=== PATIENT | male | born 1940 | race African-American/Black ===

== ENCOUNTER 2016-06-08 14:09 | Emergency (ER) | payer MEDICARE ==
[~2016-06-08] VITALS: Ht 162.6 cm; Wt 61.2 kg
[~2016-06-08 14:09] MED LIST: APRESOLINE50 MG ORAL; ASPIRIN EC81 MG ORAL; CARAFATE1 G1 ORAL; CATAPRES0.1 MG ORAL; CHROMIUM PICO400 MCG PO; FOLIC ACID-VIT1 EACH PO; FOLIC ACID1 MG ORAL; HUMALOG100 UNIT/1 SUBQ; JANUVIA25 MG ORAL; LEVOTHYROXINE75 MCG ORAL; LISINOPRIL20 MG ORAL; LOPRESSOR25 M1 ORAL; METOPROLOL TAR100 M1 ORAL; METOPROLOL TART50 MG ORAL; NOVOLOG100 UNITS1 SUBQ; PATADAY2.5 ML OP; PLAVIX75 MG ORAL; POTASSIUM30 MEQ/22. GT; PROTONIX40 MG ORAL; RENVELA800 MG ORAL; TRAVATAN Z5 ML OP; VITAMIN D1000 UNI1 ORAL; ZESTRIL10 MG ORAL
[2016-06-08] MEDS ORDERED: UNOBMED (14:29)
[2016-06-08 15:03] VITALS: BP 164/81
[2016-06-08 15:12] VITALS: BP 160/72
--- NOTE | 2016-06-08 17:00 | Emergency Room Report ---
History of Present Illness General Chief Complaint: Hypertension Source: Patient Present Illness HPI 75-year-old male presents ED for violation. Patient states he was at dialysis today and he was noted to be hypertensive. BP was 240/106. Patient did complete his dialysis. Clonidine prior to arrival. patient states she feels okay. Denies any headaches, blurry vision, nausea or vomiting. Denies chest pain or shortness of breath. No other aggravating or relieving factors. Denies any other associated symptoms. PMD is Dr. Norris Allergies: Coded Allergies: NO KNOWN DRUG ALLERGIES (Unverified Allergy, Unknown, 06/29/14) Patient History Past Medical History: HTN, renal disease, dialysis Past Surgical History: none Pertinent Family History: none Social History: Denies: alcohol use, drug use, smoking Immunizations: UTD Reviewed Nursing Documentation: PMH: Agreed, PSxH: Agreed Nursing Documentation-PMH Past Medical History: No History, Except For Hx Cardiac Problems: Yes - eye operation Hx Hypertension: Yes Hx Asthma: No Hx COPD: No Hx Diabetes: Yes Hx Cancer: No Hx Gastrointestinal Problems: No Hx Dialysis: Yes - T Th Sat Hx Neurological Problems: No Hx Cerebrovascular Accident: No Hx Seizures: No Review of Systems All Other Systems: negative except mentioned in HPI Physical Exam Vital Signs Date Time Temp Pulse Resp B/P Pulse Ox O2 Delivery O2 Flow Rate FiO2 06/08/16 14:21 98.1 51 18 147/71 99 Room Air Sp02 EP Interpretation: reviewed, normal General Appearance: no apparent distress, alert, GCS 15, non-toxic Head: normocephalic, atraumatic Eyes: bilateral eye PERRL, bilateral eye normal inspection ENT: hearing grossly normal, normal pharynx, no angioedema, normal voice Neck: full range of motion, supple/symm/no masses Respiratory: chest non-tender, lungs clear, normal breath sounds, speaking full sentences Cardiovascular #1: regular rate, rhythm, no edema Cardiovascular #2: 2+ carotid (R), 2+ carotid (L), 2+ radial (R), 2+ radial (L) , 2+ dorsalis pedis (R), 2+ dorsalis pedis (L) Gastrointestinal: normal bowel sounds, non tender, soft, non-distended, no guarding, no rebound Rectal: deferred Genitourinary: normal inspection, no CVA tenderness Musculoskeletal: back normal, gait/station normal, normal range of motion, non- tender Neurologic: alert, oriented x3, responsive, motor strength/tone normal, sensory intact, speech normal Psychiatric: judgement/insight normal, memory normal, mood/affect normal, no suicidal/homicidal ideation Reflexes: 3+ bicep (R), 3+ bicep (L), 3+ tricep (R), 3+ tricep (L), 3+ knee (R) , 3+ knee (L) Skin: normal color, no rash, warm/dry, well hydrated Lymphatic: no adenopathy Medical Decision Making Diagnostic Impression: Primary Impression: Hypertension Qualified Codes: I15.9 - Secondary hypertension, unspecified ER Course Hospital Course 75-year-old male presents ED complaining of elevated BP, completed dialysis today. Asymptomatic Differential diagnoses include: hypertensive urgency, hypertensive emergency, arrythmia, NV/ACS Clinical course Patient placed on stretcher. After initial history and physical I repeated BP and it was 147/71. patient remains asymptomatic. I see no reason to draw labs or treat emergently. I discussed case with PMD Dr. Norris he agrees no further intervention required at this time. Patient can be safely discharged to home with followup I. I feel this is a highly complex case requiring extensive working including EKG/Rhythm strip, Xray/CT/US, Blood/urine lab work, repeat exams while in ED, and administration of strong opiates/narcotics for pain control, admission to hospital or close patient follow up. Diagnosis - hypertension Stable and discharged to home. Instructed to followup with PMD. Return to ED if symptoms recur or worsen Last Vital Signs Date Time Temp Pulse Resp B/P Pulse Ox O2 Delivery O2 Flow Rate FiO2 06/08/16 15:12 98.0 60 18 160/72 99 Room Air Status: improved Disposition: HOME, SELF-CARE Condition: Stable Referrals: LUCINDA WELLINGTON (PCP) Patient Instructions: Hypertension, [id number] JABIER SUTTON M.D. Jun 08, 2016 17:00
== END 2016-06-08 15:12 | disposition home or self-care (01) ==
LOC: EMR 15:00
DX: I12.0 Hypertensive chronic kidney disease with stage 5 chronic kidney disease or end stage renal disease (principal); N18.6 End stage renal disease; Z99.2 Dependence on renal dialysis; E11.9 Type 2 diabetes mellitus without complications
CPT/HCPCS: 99283